=== PATIENT | male | born 1995 | race African-American/Black ===

== ENCOUNTER 2017-07-29 19:41 | Emergency (ER) | payer OTHER ==
[~2017-07-29] VITALS: Ht 175.3 cm; Wt 80.0 kg
[~2017-07-29 19:41] MED LIST: NAPR500 PO; ZOFR4TAB3 SL
[2017-07-29 19:42] VITALS: BP 136/78; PULSE 69; RESP 16; TEMP 99; O2SAT 98
--- NOTE | 2017-07-29 20:57 | PD ---
HPI Chief Complaint: Back/ Neck Pain or Injury Time Seen by Provider: 20:52 Travel History International Travel<30 days: No Contact w/Intl Traveler<30days: No Traveled to known affect area: No History of Present Illness HPI Patient is a 22-year-old male presenting to the emergency department for evaluation of left shoulder, back and neck pain. Patient states his symptoms started 2 days ago, there was no preceding injury or trauma however patient does dance at school, patient is a student at [employer]. He reports waking up with the pain. He states the pain is worse with movement, his pain is 8 out of 10 and states that the pain is shooting and cramping. Patient took Tylenol twice with no relief of symptoms. He denies any headache, fevers, chest pain, shortness of breath. Patient denies any significant past medical history. He further denies any IV drug use. PFSH Past Medical History Medical History: Denies Significant Hx Diminished Hearing: No Tetanus Vaccination: < 5 Years Past Surgical History Surgical History: No Previous Surgery Social History Alcohol Use: Yes (rare) Tobacco Use: No Substance Use: Yes (marijaunia occsionally) Allergies-Medications (Allergen,Severity, Reaction): Coded Allergies: penicillin G (Unverified Allergy, Severe, 05/28/17) Uncoded Allergies: SEAFOOD/IODINE (Allergy, Severe, 12/30/12) Reported Meds & Prescriptions Reported Meds & Active Scripts Active No Active Prescriptions or Reported Medications Review of Systems Except as stated in HPI: all other systems reviewed are Neg Musculoskeletal: Positive: Myalgias, Limited ROM, Cramping, Pain Physical Exam Narrative GENERAL: Well-developed, well-nourished, alert gentleman. Appears uncomfortable, in no acute distress. SKIN: Warm and dry. HEAD: Atraumatic. Normocephalic. EYES: Pupils equal and round. No scleral icterus. No injection or drainage. ENT: No nasal bleeding or discharge. Mucous membranes pink and moist. NECK: Trachea midline. No JVD. Tenderness to palpation paraspinal musculature in the cervical region on the left side. No spinal tenderness or step-off noted. No meningeal signs noted. CARDIOVASCULAR: Regular rate and rhythm. RESPIRATORY: No accessory muscle use. Clear to auscultation. Breath sounds equal bilaterally. GASTROINTESTINAL: Abdomen soft, non-tender, nondistended. Hepatic and splenic margins not palpable. MUSCULOSKELETAL: Extremities without clubbing, cyanosis, or edema. No obvious deformities. Tenderness to palpation to left paraspinal musculature and thoracic region adjacent to left scapula as well as the anterior left shoulder radiating down the bicep. 2+ radial pulse, brisk is a 3 second capillary refill. Decreased range of motion with abduction, flexion and extension of left arm. NEUROLOGICAL: Awake and alert. No obvious cranial nerve deficits. Motor grossly within normal limits. Five out of 5 muscle strength in the arms and legs. Normal speech. PSYCHIATRIC: Appropriate mood and affect; insight and judgment normal. Data Data Last Documented VS Vital Signs Date Time Temp Pulse Resp B/P (MAP) Pulse Ox O2 Delivery O2 Flow Rate FiO2 07/29/17 19:42 99.0 69 16 136/78 (97) 98 Room Air Orders Orders Ketorolac Inj (Toradol Inj) (07/29/17 21:00) Orphenadrine Inj (Norflex Inj) (07/29/17 21:00) Dexamethasone Inj (Decadron Inj) (07/29/17 21:00) [facility] Medical Decision Making Medical Screen Exam Complete: Yes Emergency Medical Condition: Yes Interpretation(s) Vital Signs Date Time Temp Pulse Resp B/P (MAP) Pulse Ox O2 Delivery O2 Flow Rate FiO2 07/29/17 19:42 99.0 69 16 136/78 (97) 98 Room Air Differential Diagnosis Spasm versus strain versus discogenic pain versus tendinitis versus other Narrative Course Patient presented for evaluation of left shoulder, neck and back pain that started 2 days ago. Patient has no focal deficits noted on exam and is neurovascularly intact. Physical examination appears consistent with tendinitis and muscle spasm. Patient's vital signs are stable, medications order to help alleviate pain. Will reassess. Patient was reassessed approximately one hour after administration of medications. He reports mild improvement in his pain. He was advised that it may take several days to a week for the pain to resolve. He was advised to continue gentle range of motion exercises, apply warm heat to the affected area , take medications as directed. He was advised to follow-up with her primary doctor or return to emergency department for any new or worsening symptoms. Patient verbalized understanding of these instructions. Patient stable for discharge. Diagnosis Primary Impression: Tendinitis Additional Impression: Muscle spasm Referrals: Primary Care Physician Patient Instructions: General Instructions, Muscle Spasm (ED), Rotator Cuff Tendinitis (ED) Additional Instructions: Take medications as directed Take ibuprofen with a snack or small meals to avoid stomach upset Continue gentle range of motion exercises, apply warm heat to the affected area , avoid bed rest, avoid exacerbating activities Follow-up with a primary doctor Return to emergency department for any new or worsening symptoms Med/Other Pt SpecificInfo: Prescription(s) given Scripts Cyclobenzaprine (Flexeril) 10 Mg Tab 10 MG PO TID Y for MUSCLE SPASM, #30 TAB 0 Refills Prov: Yenni De Jesus 07/29/17 Ibuprofen (Ibuprofen) 800 Mg Tab 800 MG PO Q8H Y for Pain/Inflammation, #60 TAB 0 Refills Prov: Yenni De Jesus 07/29/17 Methylprednisolone Dosepak (Medrol Dosepak) 4 Mg Dspk 4 MG PO DIRECTED, #1 DSPK 0 Refills Per Pharmacist direction Prov: Yenni De Jesus 07/29/17 Disposition: 01 DISCHARGE HOME Condition: Stable Yenni De Jesus Jul 29, 2017 20:57
[2017-07-29] MEDS ORDERED: DEXAMETHASONE SOD PHOS 20 MG/5 ML VIAL IM ONE (21:00)
[2017-07-29] MEDS ORDERED: KETOROLAC TROMETHAMINE 60 MG/2 ML (IM) VIAL IM ONE (21:00)
[2017-07-29] MEDS ORDERED: ORPHENADRINE INJ 60 MG/2 ML AMP IM ONE (21:00)
[2017-07-29] MEDS ORDERED: CYCL1TAB29 PO (22:10)
[2017-07-29] MEDS ORDERED: MEDR4PAK PO (22:10)
[2017-07-29] MEDS ORDERED: IBUP800T23 PO (22:10)
== END 2017-07-29 22:30 | disposition home or self-care (01) ==
LOC: NEPK 19:41
DX: M77.9 Enthesopathy, unspecified (principal); M62.838 Other muscle spasm
CPT/HCPCS: 96372; 99284; J1100; J1885; J2360